=== PATIENT | male | born 1950 | race Caucasian/White ===

== ENCOUNTER → 2016-08-19 09:23 | Day surgery (SDC) | payer MEDICARE ==
[~2016-08-19 09:23] MED LIST: Acetaminophen TAB* 325 MG PO PRN; Buffered Lidocaine 1% SYR 3ML* 3 ML/SYR SYRINGE INTRADERM ONE; Buffered Lidocaine 1% SYR 3ML* 3 ML/SYR SYRINGE ONE; Bupivacaine 0.5% SDV PF* 30 ML VIAL ONE; Dexamethasone IV* 4 MG/ML 1 ML (4 MG) ONE; DiMENhydriNATE IV* 50 MG/ML VIAL IV PUSH PRN; Famotidine IV* 10 MG/ML 2 ML (20 mg) ONE; HYDROcodone/ACETAMIN 5-325 MG* 1 TAB PO PRN; KETAMINE HCL* 50 MG/ML 10 ML VIAL ONE; Ketorolac INJ* 30 MG/ML 1 ML VIAL ONE; Lidocaine 1% INJ* 10 MG/ML 30 ML SDV ONE; Lidocaine 2% PF * 5 ML VIAL ONE; Midazolam* 1 MG/ML 2 ML VIAL (2 MG) ONE; Ondansetron INJ* 2 MG/ML VIAL IV PRN; PROCHLORPERAZINE INJ 5 MG/ML 2 ML VIAL IV PRN; Propofol* 10 MG/ML 20 ML BTL IV PUSH ONE; ceFAZolin 2 GM PREMIX (*) 2 GM/50 ML BAG IVPB ONE; fentaNYL* 50 MCG/ML 2 ML VIAL (100 MCG VIAL) IV PRN; fentaNYL* 50 MCG/ML 2 ML VIAL (100 MCG VIAL) ONE
[2016-08-19 12:54] VITALS: BP 141/87
--- NOTE | 2016-08-19 20:33 | OP ---
DATE OF OPERATION: 08/19/16 - [facility] DATE OF : 46 SURGEON: Renzo Jacobs DPM. TIN FLIPPER: None. ANESTHESIOLOGIST: Dr. John ANESTHESIA: MAC with local. PRE-OP DIAGNOSIS: Painful fifth left hammer toe with painful skin lesion. POST-OP DIAGNOSIS: Painful fifth left hammer toe with painful skin lesion. OPERATIVE PROCEDURE: Derotational arthroplasty with betty-middle phalangectomy of the fifth toe of the left foot. PATHOLOGY: Degenerative bone. HEMOSTASIS: Pneumatic ankle tourniquet. ESTIMATED BLOOD LOSS: Less than 3 cc. 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 The patient had previous surgical procedure by another provider, where it is believed the bone spurs were removed from this area, but he continues to have pain wearing shoes and walking. He opts for surgery at this time to attempt to decrease the pain and improve his function and decrease the deformity. DESCRIPTION OF PROCEDURE: The patient was brought to the operating room, placed on the operating table in the supine position. The anesthesia department administered IV sedation and a peripheral nerve block was performed about the base of left fifth left toe with a 1:1 mixture of 1% lidocaine plain and 0.5% Marcaine plain. The left foot was prepped and draped in the usual fashion. The left foot was then exsanguinated with an Esmarch bandage and the pneumatic ankle tourniquet was inflated to 250 mmHg about a well-padded left ankle. Attention was directed to the fifth left toe where two semi-elliptical converging incisions were made oriented from distal medial to more proximal lateral and resultant skin wedge was resected. This encompassed the painful hyperkeratotic skin lesion. There was noted to be an abundance of fibrous and scar type tissue consistent with previous surgery in the area. A transverse tenotomy and capsulotomy was performed at the proximal interphalangeal joint and the soft tissues were reflected to allow for exposure of the proximal phalangeal head in the lateral third of the middle phalanx. Using sagittal saw , the proximal phalangeal head of the lateral third of the middle phalanx was resected and a power bur was used to smooth rough edges. The surgical site was flushed with copious amounts of normal sterile saline. Next, while holding the digit in the derotated position, the deep fascia and tendinous structures were reapproximated and secured with 4-0 Polysorb. Subcutaneous tissues were reapproximated with 4-0 Polysorb and the skin was reapproximated with 5-0 nylon , again with holding the digit in a derotated position. 4 mg of dexamethasone phosphate was infiltrated about the surgical site and the incision was dressed with Xeroform, 4x4, gauze, Eligio and a light Coban wrap. The pneumatic ankle tourniquet was deflated about the left ankle and a prompt hyperemic response was noted about all 5 digits of the patient's left foot. Having appeared to have tolerated the procedures and anesthesia well, the patient was transported via cart from the operating room to Recovery in satisfactory condition with capillary refill less than 3 seconds to all digits of the left foot. [id number]/CPS #: [id number] MTDD
== END | disposition home or self-care (01) ==
LOC: OREAST 09:23
PROVIDERS: ATTEND Podiatrist Foot Surgery
DX: M20.42 Other hammer toe(s) (acquired), left foot (principal); I10 Essential (primary) hypertension; Z87.891 Personal history of nicotine dependence
CPT/HCPCS: 88304; 88311; J0690; J1100; J1885; J2250; J2704; J3010

== ENCOUNTER 2016-12-30 07:09 | Day surgery (SDC) | payer MEDICARE ==
[2016-12-30] MEDS ORDERED: ceFAZolin 2 GM PREMIX(*) 2 GM/50 ML BAG IVPB ONE (07:17)
[2016-12-30] MEDS ORDERED: Buffered Lidocaine 0.9% SYRIN* 5 ML/SYR SYRINGE ONE (07:18)
[2016-12-30] MEDS ORDERED: fentaNYL* 50 MCG/ML 2 ML VIAL (100 MCG VIAL) ONE (08:37)
[2016-12-30] MEDS ORDERED: Midazolam* 1 MG/ML 2 ML VIAL (2 MG) ONE (08:37)
[2016-12-30] MEDS ORDERED: Propofol* 10 MG/ML 20 ML BTL IV PUSH ONE (08:37)
[2016-12-30] MEDS ORDERED: Bupivacaine 0.25% SDV* 30 ML ONE (08:44)
[2016-12-30] MEDS ORDERED: Bupivacaine 0.25% EPI 200,000* 30 ML SDV ONE (08:44)
[2016-12-30] MEDS ORDERED: Lidocain 1% EPI 1:100,000 * 30 ML MDV ONE (08:44)
[2016-12-30 09:30] VITALS: BP 119/72
== END 2016-12-30 09:48 | disposition home or self-care (01) ==
LOC: OREAST 07:09
PROVIDERS: ATTEND Plastic Surgery
DX: I82.601 Acute embolism and thrombosis of unspecified veins of right upper extremity (principal); I10 Essential (primary) hypertension; K21.9 Gastro-esophageal reflux disease without esophagitis; K22.70 Barrett's esophagus without dysplasia; Z87.891 Personal history of nicotine dependence
CPT/HCPCS: 88304; J0690; J2250; J2704; J3010

== ENCOUNTER → 2017-11-01 07:35 | Day surgery (SDC) | payer MEDICARE ==
--- NOTE | 2017-10-25 19:35 | HP ---
CC: Dr. Rochelle Groves; Dr. Herve Lamas * PREOPERATIVE HISTORY AND PHYSICAL: DATE OF ADMISSION/SURGERY: 11/01/17 DATE OF PREOPERATIVE HISTORY AND PHYSICAL EXAMINATION: 10/25/17 ATTENDING SURGEON: Zeyad Chawla MD * (dictated by Flaco Carrasco NP). CHIEF COMPLAINT: Ventral hernia. HISTORY OF PRESENT ILLNESS: The patient is a 67-year-old male referred to Dr. Chawla by Dr. Rochelle Groves for evaluation of a ventral hernia. The patient underwent laparoscopic Yvon repair of a paraesophageal hernia at [facility] in 2010. He had a cough in July 2017 and then noticed a mass in the left upper quadrant of the abdomen and he described that as feeling "like a baseball." It partially reduces, but it is uncomfortable at times. He denies any nausea or vomiting or change in bowel habits. At Dr. Groves's office, in July, he had an elevated blood pressure and an EKG revealed right bundle-branch block. He was referred for a cardiology consult at [place] with Dr. Lamas. He had a transthoracic echocardiogram, 09/09/17, which revealed mild concentric LVH, normal LV function, ejection fraction of 55% to 60%, moderate diastolic dysfunction. This was essentially unchanged from a previous echocardiogram. He was started on lisinopril/hydrochlorothiazide with improvement in his hypertension. He has been cleared to proceed with the recommended surgery. Dr. Chawla examined the patient and described the nature of the surgical procedure, which will be open repair of the left upper quadrant incisional hernia as a same day surgery procedure. He described the relevant risks and benefits and today I reviewed the typical postoperative care and recovery. The patient has had a chance to ask questions and stated that he understands the information and is satisfied with the answers given to his questions. He will sign surgical consent on the day of surgery. PAST MEDICAL HISTORY: Significant for obesity, hypertension, right bundle- branch block, prior tobacco abuse, diastolic dysfunction by echocardiogram, Nolan's esophagus, osteoarthritis, and gastroesophageal reflux disease. PAST SURGICAL HISTORY: Laparoscopic Yvon fundoplication, back surgery, inguinal hernia repair on the left by Dr. Chawla 2010, tendon arthroplasty left arm 2008. MEDICATIONS: 1. Lisinopril/hydrochlorothiazide 20/25 mg once daily. 2. Omeprazole 20 mg p.o. b.i.d. 3. Aspirin 81 mg p.o. daily, which the patient will continue in the perioperative period. 4. Fish oil. 5. Higbee 3 of 1000 mg daily. 6. Vitamin D3 international units daily. 7. Zinc 1 tablet twice weekly. ALLERGIES: No known drug allergies. FAMILY HISTORY: Father with history of brain cancer, mother with a history of cirrhosis. No known anesthesia complications, bleeding tendencies or clotting disorders. SOCIAL HISTORY: He is ; he is retired from [employer]; he is a former smoker and quit in 2008, he rarely consumes alcohol and denies the use of other substances. REVIEW OF SYSTEMS: Constitutional: No fevers, chills, excessive fatigue or weight loss. Endocrine: No diabetes or thyroid disease. Hematologic: No easy bruising or bleeding. No previous blood transfusions. Respiratory: No dyspnea on exertion. No chronic cough. He quit smoking in 2008. Cardiovascular: No anginal chest pain or palpitations. No syncopal episodes. No history of myocardial infarction or congestive heart failure. He walks 3 miles 5 days a week. He has been cleared by Dr. Lamas from [facility] to proceed with the surgery. Please see the attached consultation note for details; his blood pressure has improved on lisinopril, hydrochlorothiazide. His transthoracic echocardiogram revealed ejection fraction of 55% to 60%, normal LV function and moderate diastolic dysfunction. Gastrointestinal: No nausea, vomiting, diarrhea, GI bleeding or constipation, no change in bowel habits. Genitourinary: No dysuria. Musculoskeletal: History of osteoarthritis. No current complaints of joint or back pain. Neurologic: No headache, blurred vision, areas of focal weakness or numbness. Normal gait. General: No history of deep vein thrombosis or pulmonary embolism. No bleeding tendencies. He states with previous anesthesia he requested to come out of it quickly because a slow recovery can produce anxiety. PHYSICAL EXAMINATION GENERAL SURVEY: The patient is a 67-year-old male, well developed, well nourished in no acute distress. Height 68 inches, weight 210 pounds, body mass index 31.9. VITAL SIGNS: Blood pressure 124/82, pulse 72 and regular, respiratory rate 16, temperature 97.3 tympanic. HEENT: Benign. NECK: Supple. No cervical lymphadenopathy. LUNGS: Breath sounds bilaterally clear and equal. HEART: Regular rate and rhythm. No murmurs or rubs appreciated. ABDOMEN: Active bowel sounds, multiple well-healed scars from prior laparoscopy ; visible bulge in the left upper quadrant, partially reducible, mildly tender. No obvious palpable defect. Abdomen is soft and nondistended. No other obvious masses or organomegaly. GENITALIA EXAM: Deferred. EXTREMITIES: Warm without edema or skin ulcerations. RECTAL EXAM: Deferred. NEUROLOGIC: Alert and oriented x3. Steady gait. SKIN: Warm, dry, intact. IMPRESSION: Left upper quadrant incisional hernia. PLAN/RECOMMENDATIONS: Same day surgery admission to Dr. Chawla' service on 11/01/17, for open repair of left upper quadrant abdominal incisional hernia. FLACO CARRASCO, PLANNING SPECIALIST [id number]/CPS #: [id number] CAITY
[~2017-11-01 07:35] MED LIST changes: +Buffered Lidocaine 0.9% SYRIN* 5 ML/SYR SYRINGE INTRADERM ONE; -Buffered Lidocaine 1% SYR 3ML* 3 ML/SYR SYRINGE INTRADERM ONE; -Buffered Lidocaine 1% SYR 3ML* 3 ML/SYR SYRINGE ONE; -Bupivacaine 0.5% SDV PF* 30 ML VIAL ONE; +Bupivacaine 0.5%* 50 ML VIAL ONE; -Famotidine IV* 10 MG/ML 2 ML (20 mg) ONE; -KETAMINE HCL* 50 MG/ML 10 ML VIAL ONE; -Lidocaine 1% INJ* 10 MG/ML 30 ML SDV ONE; +Lidocaine 1% MPF wEPI 200,000* 30 ML SDV ONE; -Lidocaine 2% PF * 5 ML VIAL ONE; -Midazolam* 1 MG/ML 2 ML VIAL (2 MG) ONE; +Midazolam* 1 MG/ML 5 ML VIAL (5 MG) ONE; +Naloxone* 0.4 MG/ML 1 ML VIAL IV PRN; +Ondansetron INJ* 2 MG/ML VIAL ONE; -PROCHLORPERAZINE INJ 5 MG/ML 2 ML VIAL IV PRN; -Propofol* 10 MG/ML 20 ML BTL IV PUSH ONE; +oxyCODONE/Acetamin 5/325 MG* TAB PO PRN
--- NOTE | 2017-11-01 11:27 | OP ---
Operative Report - Blank - Operative Report Date of Operation: 11/01/17 Note: Preop Dx: Ventral Incisional Hernia Postop Dx: same Procedure: Open repair Ventral Incisional hernia (primary repair) Anesthesia: Local/MAC Surgeon: Cammy Asst: SUAD Magallon Fluids: 1200 ml RL EBL: < 50 ml Specimen: none Drains: none Findings: dictated
[2017-11-01 12:17] VITALS: BP 107/63
--- NOTE | 2017-11-01 23:14 | OP ---
CC: Rochelle Groves MD, [facility]; Herve Lamas MD, [facility] * DATE OF OPERATION: 11/01/17 - [facility] DATE OF : 46 SURGEON: Dr. Chawla. EVAPORATOR: SUAD Sanchez ANESTHESIOLOGIST: Naga Ruiz MD ANESTHESIA: General endotracheal. PRE-OP DIAGNOSIS: Ventral incisional hernia. POST-OP DIAGNOSIS: Ventral incisional hernia. OPERATIVE PROCEDURE: Open repair of ventral incisional hernia. ESTIMATED BLOOD LOSS: Minimum. IV FLUIDS: Crystalloids. SPECIMENS: None. DRAINS: None. COMPLICATIONS: None. COUNTS: The instrument, needle, and sponge counts were correct. DESCRIPTION OF PROCEDURE: The patient was brought to the operating room and placed on the table supine. Sequential compression devices were placed in both lower extremities. Intravenous sedation was administered and the abdomen was prepped and draped in the usual sterile fashion. Time-out was performed. He received appropriate intravenous antibiotics. Local anesthetic was infiltrated into the skin, soft tissue, and the site overlying the area of the incisional hernia. This was from a laparoscopic port site. The skin was incised along the vertical axis in the left upper quadrant for a length of approximately 3 inches. Subcutaneous tissues were divided with cautery and a massive omentum within a peritoneal sack was encountered. The peritoneal sac was opened and omentum dissected free from it. The defect was approximately 4 cm long and it was through the left rectus muscle. The anterior and posterior leaves of the rectus sheath were able to be out. The muscle was able to be mobilized so that the posterior sheath was able to be approximated without tension and closed transversely with 0 Ethibond suture using interrupted [id number] sutures. The anterior sheath was then closed with the same suture in a vertical direction. After completing the closure, the wound was irrigated. Hemostasis was assured and the incision was closed in 2 layers of 3-0 Vicryl for the subcutaneous tissues and 4-0 Monocryl used to approximate the skin edges. Steri-Strips were applied with the dry dressing. The patient tolerated the procedure well and was transferred to Recovery in stable condition. [id number]/[facility] #: [id number] [facility]
== END | disposition home or self-care (01) ==
LOC: OR 07:35
PROVIDERS: ATTEND Surgery
DX: K43.2 Incisional hernia without obstruction or gangrene (principal); Z87.891 Personal history of nicotine dependence; K21.9 Gastro-esophageal reflux disease without esophagitis; E66.9 Obesity, unspecified; I10 Essential (primary) hypertension; I45.10 Unspecified right bundle-branch block; I50.30 Unspecified diastolic (congestive) heart failure
CPT/HCPCS: J0690; J1100; J1885; J2001; J2250; J2405; J3010

== ENCOUNTER 2019-10-02 11:00 | Inpatient (IN) ==
[2020-02-05] MEDS ORDERED: Buffered Lidocaine 1% SYRIN 1 ml INTRADERM ONE ×2 (06:00→07:39)
[2020-02-05] MEDS ORDERED: Lactated Ringers 1000 ml BAG 1,000 ML IV SCH (06:00)
[2020-02-05] MEDS ORDERED: ceFAZolin 2 GM PREMIX 2 GM/50 ML BAG ONE (07:39)
[2020-02-05] MEDS ORDERED: Prochlorperazine 5 mg/ml 2 ml VIAL (10 mg) IV PRN (08:19)
[2020-02-05] MEDS ORDERED: Naloxone 0.4 mg VIAL 0.4 mg/ml 1 ml VIAL IV PRN (08:19)
[2020-02-05] MEDS ORDERED: diPHENhydraMINE IV 50 MG/ML 1 ml VIAL (BENADRYL) IV PRN ×2 (08:19→12:08)
[2020-02-05] MEDS ORDERED: fentaNYL 100 mcg/2 ml 50 MCG/ML VIAL ONE ×2 (08:28→10:24)
[2020-02-05] MEDS ORDERED: Midazolam 2 mg/2 ml VIAL 1 mg/ml 2 ml VIAL (2 mg) ONE (08:28)
[2020-02-05] MEDS ORDERED: Rocuronium 50 mg VIAL 10 mg/ml 5 ml VIAL (50 mg) ONE (08:46)
[2020-02-05] MEDS ORDERED: ROPIVACAINE 5 MG/ML 30 ML BTL (0.5%) ONE (08:55)
[2020-02-05] MEDS ORDERED: HYDROmorphone 1 MG/1 ML SYRINGE ONE ×2 (10:55→12:33)
[2020-02-05] MEDS ORDERED: EPHEDrine (Pressors) 50 MG/ML VIAL ONE (11:31)
[2020-02-05] MEDS ORDERED: Propofol 10 MG/ML 20 ML BTL ONE (11:31)
[2020-02-05] MEDS ORDERED: Ondansetron 4 mg VIAL 2 MG/ML 2 ml VIAL ONE (11:31)
[2020-02-05] MEDS ORDERED: Lidocaine 2% PF 5 ML VIAL ONE (11:31)
[2020-02-05] MEDS ORDERED: Dexamethasone IV 4 MG/ML VIAL 1 ml VIAL ONE (11:31)
[2020-02-05] MEDS ORDERED: Ondansetron 4 mg VIAL 2 MG/ML 2 ml VIAL IV PRN (12:08)
[2020-02-05] MEDS ORDERED: diPHENhydraMINE 25 mg TAB PO PRN (12:08)
[2020-02-05] MEDS ORDERED: oxyCODONE/Acetamin 5/325 mg TAB PO PRN (12:08)
[2020-02-05] MEDS ORDERED: Lactulose 30 ml UDC PO PRN (12:08)
[2020-02-05] MEDS ORDERED: Magnesium Hydroxide LIQ 30 ML UDC PO PRN (12:08)
[2020-02-05] MEDS ORDERED: Ondansetron ODT 4 mg TAB 4 MG TAB PO PRN (12:08)
[2020-02-05] MEDS: HYDROmorphone 1 MG/1 ML SYRINGE IV PRN ×5 (12:36→13:03)
[2020-02-05] MEDS: Lactated Ringers 1000 ml BAG 1,000 ML IV SCH (14:05)
[2020-02-05] MEDS: oxyCODONE/Acetamin 5/325 mg TAB PO PRN (16:20)
[2020-02-05] MEDS: ceFAZolin 1 GM ADVAN 1 GM in NS 0.9% 50 ML 50 ML IVPB SCH (19:11)
[2020-02-05] MEDS: Magnesium Hydroxide LIQ 30 ML UDC PO SCH (21:41)
[2020-02-06] MEDS: ceFAZolin 1 GM ADVAN 1 GM in NS 0.9% 50 ML 50 ML IVPB SCH ×2 (02:14→10:40)
[2020-02-06] MEDS: oxyCODONE/Acetamin 5/325 mg TAB PO PRN ×2 (02:16→08:24)
[2020-02-06] MEDS: Lactated Ringers 1000 ml BAG 1,000 ML IV SCH (02:18)
[2020-02-06 07:16] LABS: Hematocrit 32 % (42-52); Hemoglobin 11.1 g/dL (14.0-18.0); Mean Platelet Volume 8.2 fL (7.4-10.4); Platelet Count 188 10^3/uL (150-450)
[2020-02-06 07:44] LABS: Calcium 8.4 mg/dL (8.6-10.3); Potassium 4.5 mmol/L (3.5-5.0)
[2020-02-06 07:49] LABS: EGFR African American 37.1 (>60); EGFR Non-African American 30.7 (>60)
[2020-02-06] MEDS: Magnesium Hydroxide LIQ 30 ML UDC PO SCH (08:24)
[2020-02-06] MEDS ORDERED: Vitamin THERAPEUTIC TAB PO SCH (09:00)
[2020-02-06 11:08] VITALS: BP 98/56
== END 2020-02-06 12:50 | disposition home or self-care (01) | DRG 470 ==
LOC: AA 02-05 07:14 → SSU 02-05 12:08
PROVIDERS: ADMIT Orthopaedic Surgery Adult Reconstructive Orthopaedic Surgery; ATTEND Orthopaedic Surgery Adult Reconstructive Orthopaedic Surgery